=== PATIENT | male | born 1990 | race African-American/Black ===

== ENCOUNTER 2024-03-30 22:29 | Inpatient (IN) | payer OTHER, SELFPAY ==
--- NOTE | ~2024-03-30 | US_ITS ---
EXAMINATION: US TRIPLEX LOWER EXTREMITY, RIGHT CLINICAL INFORMATION: History of deep vein thrombosis. Noncompliant with AC COMPARISON: None available. TECHNIQUE: Color-flow triplex imaging with spectral analysis and compression Doppler were performed on the right lower extremity. FINDINGS: Respiratory variation, normal compression and augmented flow are noted throughout the right lower extremity. The visualized common femoral vein, superficial femoral vein, profunda femoral vein, popliteal vein and midcalf peroneal and posterior tibial venous segments show no evidence of deep venous thrombosis. There is no Holt's cyst. US/US venous duplex LE RT IMPRESSION: No evidence of deep venous thrombosis involving the right lower extremity. Electronically signed by: Cole Del Rio MD 03/31/2024 02:40 PM EDT
[2024-03-30 23:42] VITALS: BMI 21.6
[2024-03-30 23:44] VITALS: BP 111/76; PULSE 80; RESP 16; TEMP 36.9; O2SAT 99
--- NOTE | 2024-03-31 01:01 | PC.ADMIT ---
Pt is a 33 yo male admitted to unit via [facility] after referral from CARE Team via interhospital transfer from [facility]. Pt arrived on unit at 2245 on 03/30/2024. 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 Pt denies medical issues other than a hx of a blood clot a few years ago. Pt reports marijuana use weekly but denies alcohol or other substance use. However, the records reflect pt reported use of shrooms and jazmyn's . Pt reports smoking one cigarette daily. Precipitant to admission; pt came to hospital for treatment of right shoulder pain and while there stated to the ED doctor that he is not feeling like himself and feels like he is losing touch with reality . Stated he has not been med compliant. Reports feeling guarded and paranoid . Denies SI/HI. Pt endorses seeing shadowy figure and flashes of light and hearing voices but hard to make out what they are saying . Pt was reported to be conversing with himself in ambulance according to EMS. During admission evaluation, pt appeared to be thought blocking, pausing for periods of time before answering questions, poor attention span at those times. EMS reported that staff at [facility] stated that he was known to them and that he can be aggressive. Pt presents as disheveled and malodorous in hospital [facility]. Skin check unremarkable other than many tattoos and callused areas on plantar aspect of feet. Provider pipeline superintendent division [facility] notified of admission and orders obtained. Pt placed on 15 minute safety checks. Pt reports feeling safe on the hospital.
[2024-03-31 08:20] VITALS: BP 118/69; PULSE 88; RESP 16; TEMP 36.4; O2SAT 98
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
[2024-03-31 20:00] VITALS: BP 115/75; PULSE 61; RESP 16; TEMP 36.8; O2SAT 100
[2024-03-31] MEDS: OLANZapine 10 MG TABLET PO (22:07)
[2024-03-31] MEDS: Benztropine Mesylate 1 MG TABLET PO (22:07)
[2024-04-01 10:47] VITALS: BP 122/84; PULSE 88; RESP 18; TEMP 36.6; O2SAT 100
--- NOTE | 2024-04-01 16:23 | P.PNPSI_ITS ---
Subjective Subjective Date of Service: 04/01/24 Reason For Visit: bipolar disorder w/ psychotic features Interim History: calm, cooperative. glad to be back on meds. feeling improved but not well. homeless, used to be in a structured program, felt that was very helpful. not sure of meds. gets them from [facility]. per staff, refusing labs. appears internally preoccupied. odd affect. inappropriate affect. slept 7 hours. Mental Status Exam Mental Status Exam Narrative: adequately dressed and groomed. no PMA/PMR. cooperative. speech nml rate, amount. decr prosody. thoughts linear and logical. affect constricted, normo- intense, non-labile. mood not assessed. no SI/SIBI/HI/AVH expressed. Diagnostics Vital Signs (24Hr): Vital Signs - 24 hr 03/31/24 20:00 04/01/24 10:47 Temperature 98.2 F 97.9 F Pulse Rate 61 88 Respiratory Rate 16 18 Blood Pressure 115/75 122/84 Pulse Oximetry 100 100 Oxygen Delivery Method Room Air Room Air BMI result Body Mass Index 21.6 Imaging Radiology Impressions: ITS Impressions Venous Duplex 03/31/24 13:00 IMPRESSION: No evidence of deep venous thrombosis involving the right lower extremity. Electronically signed by: Cole Del Rio MD 03/31/2024 02:40 PM EDT Medications Medications Current Medications Acetaminophen (Acetaminophen 325 Mg Tablet) 650 mg PO Q6H PRN PRN Reason: Headache/Pain Mild Scale (1-3) Al Hydroxide/Mg Hydroxide (Magnesium Hydrox/Alum Hydrox 30 Ml Oral.Susp) 30 ml PO Q6H PRN PRN Reason: Heartburn/Nausea Benztropine Mesylate (Benztropine Mesylate 1 Mg Tablet) 1 mg PO BEDTIME [facility] Last Admin: 03/31/24 22:07 Dose: 1 mg Hydroxyzine HCl (Hydroxyzine Hcl 25 Mg Tablet) 25 mg PO Q6H PRN PRN Reason: Anxiety Magnesium Hydroxide (Milk Of Magnesia 30 Ml Oral.Susp) 30 ml PO DAILY PRN PRN Reason: Constipation Nicotine Polacrilex (Nicotine Polacrilex 2 Mg Gum) 2 mg BUCCAL Q2H PRN PRN Reason: Nicotine Cravings Olanzapine (Olanzapine 10 Mg Tablet) 10 mg PO BEDTIME [facility] Last Admin: 03/31/24 22:07 Dose: 10 mg Trazodone HCl (Trazodone Hcl 50 Mg Tablet) 50 mg PO BEDTIME MRX1 PRN PRN Reason: Insomnia Allergies Allergies Allergy/AdvReac Type Severity Reaction Status Date / Time Pork/Porcine Containing AdvReac Unknown Unknown Verified 03/30/24 23:41 Products fish derived [fish] AdvReac Difficulty Verified 03/30/24 23:41 Breathing Assessment & Plan Assessment & Plan (1) Bipolar disorder with psychotic features: Status: Acute Code(s): F31.9 - Bipolar disorder, unspecified Plan Patient is a 33-year-old male with history of bipolar disorder with psychotic features who self presented to [facility] ER d/t right shoulder pain and began to endorse having auditory hallucinations. Plan: CV 15 minute safety checks Continue home medications pt refused labs encourage groups obtain collateral referral to outpatient psychiatric providers discharge planning 04/01: [facility], last Rx'ed cogentin 1 daily, zyprexa 10 daily, trazodone 50 QHS. not filled after fall 2022. will continue with present regimen for now and review with pt tomorrow. Reason for continued inpatient stay Substantial Risk for: inability to function Time Spent With Patient Time: Total time managing care of this patient today _35___ minutes.
[2024-04-01 20:00] VITALS: RESP 16
[2024-04-01] MEDS: Benztropine Mesylate 1 MG TABLET PO (21:03)
[2024-04-01] MEDS: OLANZapine 10 MG TABLET PO (21:03)
[2024-04-02 07:15] VITALS: BP 108/71; PULSE 85; RESP 14; TEMP 36.9; O2SAT 98
--- NOTE | 2024-04-02 13:52 | HO.PSYCHPN ---
Subjective Subjective Date of Service: 04/02/24 Reason For Visit: bipolar disorder w/ psychotic features Interim History: reports slept well overnight. delayed answers, distracted. agreeable to continue current mgmt for now. outpt regimen discussed, MD's info from pharmacy discussed. per staff, variable affect. inappropriate smiling. showered. slept most of the day. +RIS. slept 7 hours. Mental Status Exam Mental Status Exam Narrative: adequately dressed and groomed. no PMA/PMR. cooperative. speech nml rate, amount. decr prosody. thoughts logical but with periods of delay and apparent non sequiturs in responses. affect constricted, normo-intense, non-labile. mood not assessed. no SI/SIBI/HI/AVH expressed. Diagnostics Vital Signs (24Hr): Vital Signs - 24 hr 04/01/24 20:00 04/02/24 07:15 Temperature 98.4 F Pulse Rate 85 Respiratory Rate 16 14 Blood Pressure 108/71 Pulse Oximetry 98 Oxygen Delivery Method Room Air BMI result Body Mass Index 21.6 Imaging Radiology Impressions: ITS Impressions Venous Duplex 03/31/24 13:00 IMPRESSION: No evidence of deep venous thrombosis involving the right lower extremity. Electronically signed by: Cole Del Rio MD 03/31/2024 02:40 PM EDT Medications Medications Current Medications Acetaminophen (Acetaminophen 325 Mg Tablet) 650 mg PO Q6H PRN PRN Reason: Headache/Pain Mild Scale (1-3) Al Hydroxide/Mg Hydroxide (Magnesium Hydrox/Alum Hydrox 30 Ml Oral.Susp) 30 ml PO Q6H PRN PRN Reason: Heartburn/Nausea Benztropine Mesylate (Benztropine Mesylate 1 Mg Tablet) 1 mg PO BEDTIME [facility] Last Admin: 04/01/24 21:03 Dose: 1 mg Hydroxyzine HCl (Hydroxyzine Hcl 25 Mg Tablet) 25 mg PO Q6H PRN PRN Reason: Anxiety Magnesium Hydroxide (Milk Of Magnesia 30 Ml Oral.Susp) 30 ml PO DAILY PRN PRN Reason: Constipation Nicotine Polacrilex (Nicotine Polacrilex 2 Mg Gum) 2 mg BUCCAL Q2H PRN PRN Reason: Nicotine Cravings Olanzapine (Olanzapine 10 Mg Tablet) 10 mg PO BEDTIME [facility] Last Admin: 04/01/24 21:03 Dose: 10 mg Trazodone HCl (Trazodone Hcl 50 Mg Tablet) 50 mg PO BEDTIME MRX1 PRN PRN Reason: Insomnia Allergies Allergies Allergy/AdvReac Type Severity Reaction Status Date / Time Pork/Porcine Containing AdvReac Unknown Unknown Verified 03/30/24 23:41 Products fish derived [fish] AdvReac Difficulty Verified 03/30/24 23:41 Breathing Assessment & Plan Assessment & Plan (1) Bipolar disorder with psychotic features: Status: Acute Code(s): F31.9 - Bipolar disorder, unspecified Plan Patient is a 33-year-old male with history of bipolar disorder with psychotic features who self presented to [facility] ER d/t right shoulder pain and began to endorse having auditory hallucinations. Plan: CV 15 minute safety checks Continue home medications pt refused labs encourage groups obtain collateral referral to outpatient psychiatric providers discharge planning [facility]/01: [facility], last Rx'ed cogentin 1 daily, zyprexa 10 daily, trazodone 50 QHS. not filled after fall 2022. will continue with present regimen for now and review with pt tomorrow. 04/02: discussed prior regimen with pt. pt with incr KEV and some non sequiturs. continue current mgmt for now. Reason for continued inpatient stay Substantial Risk for: inability to function Time Spent With Patient Time: Total time managing care of this patient today __25__ minutes.
[2024-04-02 20:00] VITALS: RESP 14
[2024-04-02] MEDS: OLANZapine 10 MG TABLET PO (20:16)
[2024-04-03] MEDS: Acetaminophen 325 MG TABLET 650 MG PO (08:34)
--- NOTE | 2024-04-03 13:16 | P.PNPSI_ITS ---
Subjective Subjective Date of Service: 04/03/24 Reason For Visit: bipolar disorder w/ psychotic features Interim History: seen with medical student, who conducted bulk of interview. pt much better able to express himself today. remains paranoid, notably of this commercial insurance underwriter due to this commercial insurance underwriter's silence during much of the interview, it seemed, but thoughts more organized and more expressed than yesterday. 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 it makes more sense. per staff, labile. agitated at times. c/o dep/anx. irritable. refused cogentin: i don't like the way you handled it. slept 8 hours. Mental Status Exam Mental Status Exam Narrative: adequately dressed and groomed. no PMA/PMR. cooperative. speech nml rate, incr amount. decr prosody. nml KEV. thoughts paranoid and illogical. affect constricted but more flexible than yesterday, normo-intense, non-labile. mood not assessed. no SI/SIBI/HI/AVH expressed. Diagnostics Vital Signs (24Hr): Vital Signs - 24 hr 04/02/24 20:00 Respiratory Rate 14 BMI result Body Mass Index 21.6 Imaging Radiology Impressions: ITS Impressions Venous Duplex 03/31/24 13:00 IMPRESSION: No evidence of deep venous thrombosis involving the right lower extremity. Electronically signed by: Cole Del Rio MD 03/31/2024 02:40 PM EDT RP Medications Medications Current Medications Acetaminophen (Acetaminophen 325 Mg Tablet) 650 mg PO Q6H PRN PRN Reason: Headache/Pain Mild Scale (1-3) Last Admin: 04/03/24 08:34 Dose: 650 mg Al Hydroxide/Mg Hydroxide (Magnesium Hydrox/Alum Hydrox 30 Ml Oral.Susp) 30 ml PO Q6H PRN PRN Reason: Heartburn/Nausea Benztropine Mesylate (Benztropine Mesylate 1 Mg Tablet) 1 mg PO BEDTIME [facility] Hydroxyzine HCl (Hydroxyzine Hcl 25 Mg Tablet) 25 mg PO Q6H PRN PRN Reason: Anxiety Ibuprofen (Ibuprofen 600 Mg Tablet) 600 mg PO Q6H PRN PRN Reason: Pain (Pain Scale 1-10) Magnesium Hydroxide (Milk Of Magnesia 30 Ml Oral.Susp) 30 ml PO DAILY PRN PRN Reason: Constipation Nicotine Polacrilex (Nicotine Polacrilex 2 Mg Gum) 2 mg BUCCAL Q2H PRN PRN Reason: Nicotine Cravings Olanzapine (Olanzapine 10 Mg Tablet) 10 mg PO BEDTIME [facility] Last Admin: 04/02/24 20:16 Dose: 10 mg Trazodone HCl (Trazodone Hcl 50 Mg Tablet) 50 mg PO BEDTIME MRX1 PRN PRN Reason: Insomnia Allergies Allergies Allergy/AdvReac Type Severity Reaction Status Date / Time Pork/Porcine Containing AdvReac Unknown Unknown Verified 03/30/24 23:41 Products fish derived [fish] AdvReac Difficulty Verified 03/30/24 23:41 Breathing Assessment & Plan Assessment & Plan (1) Bipolar disorder with psychotic features: Status: Acute Code(s): F31.9 - Bipolar disorder, unspecified Plan Patient is a 33-year-old male with history of bipolar disorder with psychotic features who self presented to [facility] ER d/t right shoulder pain and began to endorse having auditory hallucinations. Plan: CV 15 minute safety checks Continue home medications pt refused labs encourage groups obtain collateral referral to outpatient psychiatric providers discharge planning [facility]/01: [facility], last Rx'ed cogentin 1 daily, zyprexa 10 daily, trazodone 50 QHS. not filled after fall 2022. will continue with present regimen for now and review with pt tomorrow. 04/02: discussed prior regimen with pt. pt with incr KEV and some non sequiturs. continue current mgmt for now. 04/03: thoughts more organized, much more productive of speech. remains quite paranoid. continue current mgmt. Reason for continued inpatient stay Substantial Risk for: inability to function and rapid decompensation Time Spent With Patient Time: Total time managing care of this patient today _25___ minutes.
--- NOTE | 2024-04-03 14:28 | PC.NURSE ---
Pt came back in from [facility] and c/o chest pain and upset stomach . Staff alerted this appeals writer immediately. This appeals writer approached patient immediately after learning about his complaints. Pt declined to have his VS taken, as well as any type of assessment at all. Just give me my space, I don't want any of that . This appeals writer immediately told Dr Berry in person who noted the situation.
[2024-04-03 20:00] VITALS: BP 120/72; PULSE 88; RESP 16; TEMP 37.2; O2SAT 98
[2024-04-03] MEDS: Benztropine Mesylate 1 MG TABLET PO (20:38)
[2024-04-03] MEDS: OLANZapine 10 MG TABLET PO (20:38)
[2024-04-04 07:00] VITALS: BMI 22.9
[2024-04-04 07:35] VITALS: BP 120/84; PULSE 89; RESP 14; TEMP 36.9; O2SAT 99
--- NOTE | 2024-04-04 14:53 | HO.PSYCHPN ---
Subjective Subjective Date of Service: 04/04/24 Reason For Visit: bipolar disorder w/ psychotic features Interim History: calm, cooperative. more talkative than a couple days ago. remains vague and suspicious. declines change in medications. per staff, anxious, irritable. taking meds, +RIS. mostly in his room. Mental Status Exam Mental Status Exam Narrative: adequately dressed and groomed. no PMA/PMR. cooperative. speech nml rate, amount. decr prosody. nml KEV. thoughts paranoid and vague. affect constricted but more flexible than yesterday, normo-intense, non-labile. mood improved. no SI/SIBI/HI/AVH expressed. Diagnostics Vital Signs (24Hr): Vital Signs - 24 hr 04/03/24 20:00 04/04/24 07:35 Temperature 98.9 F 98.4 F Pulse Rate 88 89 Respiratory Rate 16 14 Blood Pressure 120/72 120/84 Pulse Oximetry 98 99 Oxygen Delivery Method Room Air Room Air BMI result Body Mass Index 22.9 Imaging Radiology Impressions: ITS Impressions Venous Duplex 03/31/24 13:00 IMPRESSION: No evidence of deep venous thrombosis involving the right lower extremity. Electronically signed by: Cole Del Rio MD 03/31/2024 02:40 PM EDT RP Medications Medications Current Medications Acetaminophen (Acetaminophen 325 Mg Tablet) 650 mg PO Q6H PRN PRN Reason: Headache/Pain Mild Scale (1-3) Last Admin: 04/03/24 08:34 Dose: 650 mg Al Hydroxide/Mg Hydroxide (Magnesium Hydrox/Alum Hydrox 30 Ml Oral.Susp) 30 ml PO Q6H PRN PRN Reason: Heartburn/Nausea Benztropine Mesylate (Benztropine Mesylate 1 Mg Tablet) 1 mg PO BEDTIME YOANDY Last Admin: 04/03/24 20:38 Dose: 1 mg Hydroxyzine HCl (Hydroxyzine Hcl 25 Mg Tablet) 25 mg PO Q6H PRN PRN Reason: Anxiety Ibuprofen (Ibuprofen 600 Mg Tablet) 600 mg PO Q6H PRN PRN Reason: Pain (Pain Scale 1-10) Magnesium Hydroxide (Milk Of Magnesia 30 Ml Oral.Susp) 30 ml PO DAILY PRN PRN Reason: Constipation Nicotine Polacrilex (Nicotine Polacrilex 2 Mg Gum) 2 mg BUCCAL Q2H PRN PRN Reason: Nicotine Cravings Olanzapine (Olanzapine 10 Mg Tablet) 10 mg PO BEDTIME YOANDY Last Admin: 04/03/24 20:38 Dose: 10 mg Trazodone HCl (Trazodone Hcl 50 Mg Tablet) 50 mg PO BEDTIME MRX1 PRN PRN Reason: Insomnia Allergies Allergies Allergy/AdvReac Type Severity Reaction Status Date / Time Pork/Porcine Containing AdvReac Unknown Unknown Verified 03/30/24 23:41 Products fish derived [fish] AdvReac Difficulty Verified 03/30/24 23:41 Breathing Assessment & Plan Assessment & Plan (1) Bipolar disorder with psychotic features: Status: Acute Code(s): F31.9 - Bipolar disorder, unspecified Plan Patient is a 33-year-old male with history of bipolar disorder with psychotic features who self presented to [facility] ER d/t right shoulder pain and began to endorse having auditory hallucinations. Plan: CV 15 minute safety checks Continue home medications pt refused labs encourage groups obtain collateral referral to outpatient psychiatric providers discharge planning 04/01: [facility] contacted, last Rx'ed cogentin 1 daily, zyprexa 10 daily, trazodone 50 QHS. not filled after fall 2022. will continue with present regimen for now and review with pt tomorrow. 04/02: discussed prior regimen with pt. pt with incr KEV and some non sequiturs. continue current mgmt for now. 04/03: thoughts more organized, much more productive of speech. remains quite paranoid. continue current mgmt. 04/04: no substantial change from yesterday. declines to increase zyprexa. continue current mgmt. Reason for continued inpatient stay Substantial Risk for: inability to function and rapid decompensation Time Spent With Patient Time: Total time managing care of this patient today __25__ minutes.
[2024-04-04 20:00] VITALS: RESP 16
[2024-04-04] MEDS: Benztropine Mesylate 1 MG TABLET PO (21:08)
[2024-04-04] MEDS: OLANZapine 10 MG TABLET PO (21:08)
--- NOTE | 2024-04-05 15:55 | HO.PSYCHPN ---
Subjective Subjective Date of Service: 04/05/24 Reason For Visit: bipolar disorder w/ psychotic features Interim History: pt reports he continues to feel better daily, would like to keep Tx the same. resting in bed. per staff, flat, irritable. guarded, superficially pleasant. hallucinations are a little. slept 8 hours. Mental Status Exam Mental Status Exam Narrative: adequately dressed, disheveled. no PMA/PMR. cooperative. speech nml rate, amount. decr prosody. nml KEV. thoughts vague. affect constricted, normo-intense, non-labile. mood improving daily. no SI/SIBI/HI/AVH expressed. Diagnostics Vital Signs (24Hr): Vital Signs - 24 hr 04/04/24 20:00 Respiratory Rate 16 BMI result Body Mass Index 22.9 Imaging Radiology Impressions: ITS Impressions Venous Duplex 03/31/24 13:00 IMPRESSION: No evidence of deep venous thrombosis involving the right lower extremity. Electronically signed by: Cole Del Rio MD 03/31/2024 02:40 PM EDT Medications Medications Current Medications Acetaminophen (Acetaminophen 325 Mg Tablet) 650 mg PO Q6H PRN PRN Reason: Headache/Pain Mild Scale (1-3) Last Admin: 04/03/24 08:34 Dose: 650 mg Al Hydroxide/Mg Hydroxide (Magnesium Hydrox/Alum Hydrox 30 Ml Oral.Susp) 30 ml PO Q6H PRN PRN Reason: Heartburn/Nausea Benztropine Mesylate (Benztropine Mesylate 1 Mg Tablet) 1 mg PO BEDTIME [facility] Last Admin: 04/04/24 21:08 Dose: 1 mg Hydroxyzine HCl (Hydroxyzine Hcl 25 Mg Tablet) 25 mg PO Q6H PRN PRN Reason: Anxiety Ibuprofen (Ibuprofen 600 Mg Tablet) 600 mg PO Q6H PRN PRN Reason: Pain (Pain Scale 1-10) Magnesium Hydroxide (Milk Of Magnesia 30 Ml Oral.Susp) 30 ml PO DAILY PRN PRN Reason: Constipation Nicotine Polacrilex (Nicotine Polacrilex 2 Mg Gum) 2 mg BUCCAL Q2H PRN PRN Reason: Nicotine Cravings Olanzapine (Olanzapine 10 Mg Tablet) 10 mg PO BEDTIME [facility] Last Admin: 04/04/24 21:08 Dose: 10 mg Trazodone HCl (Trazodone Hcl 50 Mg Tablet) 50 mg PO BEDTIME MRX1 PRN PRN Reason: Insomnia Allergies Allergies Allergy/AdvReac Type Severity Reaction Status Date / Time Pork/Porcine Containing AdvReac Unknown Unknown Verified 03/30/24 23:41 Products fish derived [fish] AdvReac Difficulty Verified 03/30/24 23:41 Breathing Assessment & Plan Assessment & Plan (1) Bipolar disorder with psychotic features: Status: Acute Code(s): F31.9 - Bipolar disorder, unspecified Plan Patient is a 33-year-old male with history of bipolar disorder with psychotic features who self presented to [facility] ER d/t right shoulder pain and began to endorse having auditory hallucinations. Plan: CV 15 minute safety checks Continue home medications pt refused labs encourage groups obtain collateral referral to outpatient psychiatric providers discharge planning 04/01: [facility], last Rx[facility]ed cogentin 1 daily, zyprexa 10 daily, trazodone 50 QHS. not filled after fall 2022. will continue with present regimen for now and review with pt tomorrow. 04/02: discussed prior regimen with pt. pt with incr KEV and some non sequiturs. continue current mgmt for now. 04/03: thoughts more organized, much more productive of speech. remains quite paranoid. continue current mgmt. 04/04: no substantial change from yesterday. declines to increase zyprexa. continue current mgmt. 04/05: reports feeling slightly better daily. would like to continue current mgmt. Reason for continued inpatient stay Substantial Risk for: inability to function and rapid decompensation Time Spent With Patient Time: Total time managing care of this patient today _25___ minutes.
[2024-04-05 20:00] VITALS: BP 124/69; PULSE 76; RESP 16; TEMP 36.4; O2SAT 98
[2024-04-05] MEDS: OLANZapine 10 MG TABLET PO (21:30)
[2024-04-05] MEDS: Benztropine Mesylate 1 MG TABLET PO (21:30)
--- NOTE | 2024-04-06 08:27 | P.PNPSI_ITS ---
Subjective Subjective Date of Service: 04/06/24 Reason For Visit: bipolar disorder w/ psychotic features Subjective Notes: Conditional Voluntary Healthcare Proxy: No Guardianship: No Medical Problems Affecting Mental Status: No Interim History: 33 yo reports wanting to be discharged- suggested he talk with team on monday- denying all symptoms to this provider- taking medications denying side effects Nursing report patient guarded, seen on periphery of [facility] not directly engaging in groups, walking lutz- tense and mumbles then gets irritable if asked what he said. Medication Compliance: Yes Side effects from medications: No Attending Groups: Intermittent Review of Systems Acute medical concerns: No Medical Review of Systems: unchanged Mental Status Exam Mental Status Exam Narrative: dressed in sudhakar Patient Appearance: Unkempt Patient Orientation: Person, Place and Situation Level of Consciousness: Awake and Alert Patient Behavior: Guarded, Avoidant and Good Eye Contact Mood Description: Suspicious and Apprehensive Affect Description: Blunted Ability to Follow Directions: Fair Speech Pattern: Mumbled and Poor Articulation Thought Process: Intact and Goal Oriented Thought Content: positive for [place] Depressive Symptoms: Increased Irritability Abnormal Motor Activity Signs and Symptoms: Restlessness Judgement: Fair Diagnostics Vital Signs (24Hr): Vital Signs - 24 hr 04/05/24 20:00 Temperature 97.5 F Pulse Rate 76 Respiratory Rate 16 Blood Pressure 124/69 Pulse Oximetry 98 Oxygen Delivery Method Room Air BMI result Body Mass Index 22.9 Imaging Radiology Impressions: ITS Impressions Venous Duplex 03/31/24 13:00 IMPRESSION: No evidence of deep venous thrombosis involving the right lower extremity. Electronically signed by: Cole Del Rio MD 03/31/2024 02:40 PM EDT Medications Medications Current Medications Acetaminophen (Acetaminophen 325 Mg Tablet) 650 mg PO Q6H PRN PRN Reason: Headache/Pain Mild Scale (1-3) Last Admin: 04/03/24 08:34 Dose: 650 mg Al Hydroxide/Mg Hydroxide (Magnesium Hydrox/Alum Hydrox 30 Ml Oral.Susp) 30 ml PO Q6H PRN PRN Reason: Heartburn/Nausea Benztropine Mesylate (Benztropine Mesylate 1 Mg Tablet) 1 mg PO BEDTIME YOANDY Last Admin: 04/05/24 21:30 Dose: 1 mg Hydroxyzine HCl (Hydroxyzine Hcl 25 Mg Tablet) 25 mg PO Q6H PRN PRN Reason: Anxiety Ibuprofen (Ibuprofen 600 Mg Tablet) 600 mg PO Q6H PRN PRN Reason: Pain (Pain Scale 1-10) Magnesium Hydroxide (Milk Of Magnesia 30 Ml Oral.Susp) 30 ml PO DAILY PRN PRN Reason: Constipation Nicotine Polacrilex (Nicotine Polacrilex 2 Mg Gum) 2 mg BUCCAL Q2H PRN PRN Reason: Nicotine Cravings Olanzapine (Olanzapine 10 Mg Tablet) 10 mg PO BEDTIME YOANDY Last Admin: 04/05/24 21:30 Dose: 10 mg Trazodone HCl (Trazodone Hcl 50 Mg Tablet) 50 mg PO BEDTIME MRX1 PRN PRN Reason: Insomnia Allergies Allergies Allergy/AdvReac Type Severity Reaction Status Date / Time Pork/Porcine Containing AdvReac Unknown Unknown Verified 03/30/24 23:41 Products fish derived [fish] AdvReac Difficulty Verified 03/30/24 23:41 Breathing Assessment & Plan Assessment & Plan (1) Bipolar disorder with psychotic features: Status: Acute Code(s): F31.9 - Bipolar disorder, unspecified Plan Patient is a 33-year-old male with history of bipolar disorder with psychotic features who self presented to [facility] ER d/t right shoulder pain and began to endorse having auditory hallucinations. Plan: CV 15 minute safety checks Continue home medications pt refused labs encourage groups obtain collateral referral to outpatient psychiatric providers discharge planning 04/01: [facility], last Rx[facility]ed cogentin 1 daily, zyprexa 10 daily, trazodone 50 QHS. not filled after fall 2022. will continue with present regimen for now and review with pt tomorrow. 04/02: discussed prior regimen with pt. pt with incr KEV and some non sequiturs. continue current mgmt for now. 04/03: thoughts more organized, much more productive of speech. remains quite paranoid. continue current mgmt. 04/04: no substantial change from yesterday. declines to increase zyprexa. continue current mgmt. 04/05: reports feeling slightly better daily. would like to continue current mgmt. 04/06 asking about dc plan , appears guarded and reactive but more visible- CTP Patient educated on: other (dc planning) Informed Consent: further education needed Reason for continued inpatient stay Substantial Risk for: rapid decompensation Time Spent With Patient Time: Total time managing care of this patient today ____ minutes.
[2024-04-06 20:00] VITALS: RESP 16
[2024-04-07 07:49] VITALS: RESP 16
[2024-04-07] MEDS: OLANZapine 5 MG TABLET PO (09:15)
--- NOTE | 2024-04-07 11:12 | HO.PSYCHPN ---
Subjective Subjective Date of Service: 04/07/24 Reason For Visit: bipolar disorder w/ psychotic features Subjective Notes: Conditional Voluntary Healthcare Proxy: No Guardianship: No Medical Problems Affecting Mental Status: No Interim History: 33 yo who refused olanzapine 10mg last night due to what was going on with him- but can't really say what that was, seems to imply it was things on the unit but not clear that was it- Slept without olanzapine but woke up this am and was paranoid- asked for olanzapine 5mg with good effect- less defensive with provider today but nursing says he is defensive intermittently with different people, just as he was with me yesterday- Wants to stay on this dose for a bit to see what it can do for him- hoping for dc- told him he needs a dc plan with providers Medication Compliance: Intermittent Side effects from medications: No Attending Groups: Intermittent Review of Systems Acute medical concerns: No Medical Review of Systems: unchanged Mental Status Exam Mental Status Exam Patient Appearance: Appropriate Patient Orientation: Person, Place, Time and Situation Level of Consciousness: Awake and Alert Patient Behavior: Guarded, Passive and Good Eye Contact Mood Description: Anxious Affect Description: Blunted Patient Cognition Impaired: No Ability to Follow Directions: Fair Speech Pattern: Mumbled Hallucinations: None Thought Process: Distracted Thought Content: positive for Goal Oriented and positive for Evasive (more vague than evasive) Depressive Symptoms: Muscle Tension and Increased Irritability (intermittent) Abnormal Motor Activity Signs and Symptoms: Restlessness Judgement: Fair Diagnostics Vital Signs (24Hr): Vital Signs - 24 hr 04/06/24 20:00 04/07/24 07:49 Respiratory Rate 16 16 BMI result Body Mass Index 22.9 Imaging Radiology Impressions: ITS Impressions Venous Duplex 03/31/24 13:00 IMPRESSION: No evidence of deep venous thrombosis involving the right lower extremity. Electronically signed by: Cole Del Rio MD 03/31/2024 02:40 PM EDT Medications Medications Current Medications Acetaminophen (Acetaminophen 325 Mg Tablet) 650 mg PO Q6H PRN PRN Reason: Headache/Pain Mild Scale (1-3) Last Admin: 04/03/24 08:34 Dose: 650 mg Al Hydroxide/Mg Hydroxide (Magnesium Hydrox/Alum Hydrox 30 Ml Oral.Susp) 30 ml PO Q6H PRN PRN Reason: Heartburn/Nausea Benztropine Mesylate (Benztropine Mesylate 1 Mg Tablet) 1 mg PO BEDTIME YOANDY Last Admin: 04/06/24 21:29 Dose: Not Given Hydroxyzine HCl (Hydroxyzine Hcl 25 Mg Tablet) 25 mg PO Q6H PRN PRN Reason: Anxiety Ibuprofen (Ibuprofen 600 Mg Tablet) 600 mg PO Q6H PRN PRN Reason: Pain (Pain Scale 1-10) Magnesium Hydroxide (Milk Of Magnesia 30 Ml Oral.Susp) 30 ml PO DAILY PRN PRN Reason: Constipation Nicotine Polacrilex (Nicotine Polacrilex 2 Mg Gum) 2 mg BUCCAL Q2H PRN PRN Reason: Nicotine Cravings Olanzapine (Olanzapine 10 Mg Tablet) 10 mg PO BEDTIME YOANDY Last Admin: 04/06/24 21:29 Dose: Not Given Olanzapine (Olanzapine 5 Mg Tablet) 5 mg PO Q4H PRN PRN Reason: Psychosis Last Admin: 04/07/24 09:15 Dose: 5 mg Trazodone HCl (Trazodone Hcl 50 Mg Tablet) 50 mg PO BEDTIME MRX1 PRN PRN Reason: Insomnia Allergies Allergies Allergy/AdvReac Type Severity Reaction Status Date / Time Pork/Porcine Containing AdvReac Unknown Unknown Verified 03/30/24 23:41 Products fish derived [fish] AdvReac Difficulty Verified 03/30/24 23:41 Breathing Assessment & Plan Assessment & Plan (1) Bipolar disorder with psychotic features: Status: Acute Code(s): F31.9 - Bipolar disorder, unspecified Plan Patient is a 33-year-old male with history of bipolar disorder with psychotic features who self presented to [facility] ER d/t right shoulder pain and began to endorse having auditory hallucinations. Plan: CV 15 minute safety checks Continue home medications pt refused labs encourage groups obtain collateral referral to outpatient psychiatric providers discharge planning 04/01: [facility], last Rx'ed cogentin 1 daily, zyprexa 10 daily, trazodone 50 QHS. not filled after fall 2022. will continue with present regimen for now and review with pt tomorrow. 04/02: discussed prior regimen with pt. pt with incr KEV and some non sequiturs. continue current mgmt for now. 04/03: thoughts more organized, much more productive of speech. remains quite paranoid. continue current mgmt. 04/04: no substantial change from yesterday. declines to increase zyprexa. continue current mgmt. 04/05: reports feeling slightly better daily. would like to continue current mgmt. 04/06 asking about dc plan , appears guarded and reactive but more visible- CTP 04/07 CTP intermittent irritability Patient educated on: medication risk/benefits Informed Consent: further education needed Reason for continued inpatient stay Substantial Risk for: rapid decompensation Time Spent With Patient Time: Total time managing care of this patient today ____ minutes.
[2024-04-07 20:00] VITALS: RESP 16
--- NOTE | 2024-04-08 15:16 | P.PNPSI_ITS ---
Subjective Subjective Date of Service: 04/08/24 Reason For Visit: bipolar disorder w/ psychotic features Interim History: calm, cooperative. appears relaxed, not guarded or paranoid. states he does want to take medications, intends to take them tonight. informed if not interested in Tx will DC in next couple of days. would like to go to respite but interested in DCing soon. per staff, anxious, labile. withdrawn. paranoid, guarded, irritable, pleasant? +RIS. refused HS meds sat and sun. Mental Status Exam Mental Status Exam Narrative: adequately dressed, disheveled. no PMA/PMR. cooperative. speech nml rate, amount. decr prosody. nml KEV. thoughts less vague. affect constricted, normo-intense, non-labile. mood not assessed. no SI/SIBI/HI/AVH expressed. Diagnostics Vital Signs (24Hr): Vital Signs - 24 hr 04/07/24 20:00 Respiratory Rate 16 BMI result Body Mass Index 22.9 Imaging Radiology Impressions: ITS Impressions Venous Duplex 03/31/24 13:00 IMPRESSION: No evidence of deep venous thrombosis involving the right lower extremity. Electronically signed by: Cole Del Rio MD 03/31/2024 02:40 PM EDT RP Medications Medications Current Medications Acetaminophen (Acetaminophen 325 Mg Tablet) 650 mg PO Q6H PRN PRN Reason: Headache/Pain Mild Scale (1-3) Last Admin: 04/03/24 08:34 Dose: 650 mg Al Hydroxide/Mg Hydroxide (Magnesium Hydrox/Alum Hydrox 30 Ml Oral.Susp) 30 ml PO Q6H PRN PRN Reason: Heartburn/Nausea Benztropine Mesylate (Benztropine Mesylate 1 Mg Tablet) 1 mg PO BEDTIME YOANDY Last Admin: 04/07/24 21:30 Dose: Not Given Hydroxyzine HCl (Hydroxyzine Hcl 25 Mg Tablet) 25 mg PO Q6H PRN PRN Reason: Anxiety Ibuprofen (Ibuprofen 600 Mg Tablet) 600 mg PO Q6H PRN PRN Reason: Pain (Pain Scale 1-10) Magnesium Hydroxide (Milk Of Magnesia 30 Ml Oral.Susp) 30 ml PO DAILY PRN PRN Reason: Constipation Nicotine Polacrilex (Nicotine Polacrilex 2 Mg Gum) 2 mg BUCCAL Q2H PRN PRN Reason: Nicotine Cravings Olanzapine (Olanzapine 10 Mg Tablet) 10 mg PO BEDTIME YOANDY Last Admin: 04/07/24 21:30 Dose: Not Given Olanzapine (Olanzapine 5 Mg Tablet) 5 mg PO Q4H PRN PRN Reason: Psychosis Last Admin: 04/07/24 09:15 Dose: 5 mg Trazodone HCl (Trazodone Hcl 50 Mg Tablet) 50 mg PO BEDTIME MRX1 PRN PRN Reason: Insomnia Allergies Allergies Allergy/AdvReac Type Severity Reaction Status Date / Time Pork/Porcine Containing AdvReac Unknown Unknown Verified 03/30/24 23:41 Products fish derived [fish] AdvReac Difficulty Verified 03/30/24 23:41 Breathing Assessment & Plan Assessment & Plan (1) Bipolar disorder with psychotic features: Status: Acute Code(s): F31.9 - Bipolar disorder, unspecified Plan Patient is a 33-year-old male with history of bipolar disorder with psychotic features who self presented to [facility] ER d/t right shoulder pain and began to endorse having auditory hallucinations. Plan: CV 15 minute safety checks Continue home medications pt refused labs encourage groups obtain collateral referral to outpatient psychiatric providers discharge planning 04/01: [facility], last Rx'ed cogentin 1 daily, zyprexa 10 daily, trazodone 50 QHS. not filled after fall 2022. will continue with present regimen for now and review with pt tomorrow. 04/02: discussed prior regimen with pt. pt with incr KEV and some non sequiturs. continue current mgmt for now. 2: thoughts more organized, much more productive of speech. remains quite paranoid. continue current mgmt. 04/04: no substantial change from yesterday. declines to increase zyprexa. continue current mgmt. 04/05: reports feeling slightly better daily. would like to continue current mgmt. 04/06 asking about dc plan , appears guarded and reactive but more visible- CTP 04/07 CTP intermittent irritability 04/08: refused meds past 2 nights. planning to discharge soon. D/C w[facility] or [place]. Reason for continued inpatient stay Substantial Risk for: inability to function Time Spent With Patient Time: Total time managing care of this patient today _25___ minutes.
[2024-04-08 16:06] VITALS: BP 126/79; PULSE 97; RESP 16; O2SAT 99
[2024-04-08] MEDS: OLANZapine 10 MG TABLET PO (19:46)
[2024-04-08] MEDS: Benztropine Mesylate 1 MG TABLET PO (19:46)
--- NOTE | 2024-04-08 19:48 | PC.NURSE ---
HS medications requested by patient at this time. medications administered.
[2024-04-08 20:00] VITALS: RESP 16
--- NOTE | 2024-04-09 16:09 | HO.PSYCHPN ---
Subjective Subjective Date of Service: 04/09/24 Reason For Visit: bipolar disorder w/ psychotic features Interim History: in bed in afternoon, rousable. no complaints or requests. planning to DC . per staff, not attending groups. took meds last NOC. slept 7 hours. D/C . Mental Status Exam Mental Status Exam Narrative: adequately dressed, disheveled. no PMA/PMR. cooperative. speech nml rate, amount. decr prosody. nml KEV. thoughts less vague. affect constricted, normo-intense, non-labile. mood not assessed. no SI/SIBI/HI/AVH expressed. Diagnostics Vital Signs (24Hr): Vital Signs - 24 hr 04/08/24 20:00 Respiratory Rate 16 BMI result Body Mass Index 22.9 Imaging Radiology Impressions: ITS Impressions Venous Duplex 03/31/24 13:00 IMPRESSION: No evidence of deep venous thrombosis involving the right lower extremity. Electronically signed by: Cole Del Rio MD 03/31/2024 02:40 PM EDT Medications Medications Current Medications Acetaminophen (Acetaminophen 325 Mg Tablet) 650 mg PO Q6H PRN PRN Reason: Headache/Pain Mild Scale (1-3) Last Admin: 04/03/24 08:34 Dose: 650 mg Al Hydroxide/Mg Hydroxide (Magnesium Hydrox/Alum Hydrox 30 Ml Oral.Susp) 30 ml PO Q6H PRN PRN Reason: Heartburn/Nausea Benztropine Mesylate (Benztropine Mesylate 1 Mg Tablet) 1 mg PO BEDTIME [facility] Last Admin: 04/08/24 19:46 Dose: 1 mg Hydroxyzine HCl (Hydroxyzine Hcl 25 Mg Tablet) 25 mg PO Q6H PRN PRN Reason: Anxiety Ibuprofen (Ibuprofen 600 Mg Tablet) 600 mg PO Q6H PRN PRN Reason: Pain (Pain Scale 1-10) Magnesium Hydroxide (Milk Of Magnesia 30 Ml Oral.Susp) 30 ml PO DAILY PRN PRN Reason: Constipation Nicotine Polacrilex (Nicotine Polacrilex 2 Mg Gum) 2 mg BUCCAL Q2H PRN PRN Reason: Nicotine Cravings Olanzapine (Olanzapine 10 Mg Tablet) 10 mg PO BEDTIME [facility] Last Admin: 04/08/24 19:46 Dose: 10 mg Olanzapine (Olanzapine 5 Mg Tablet) 5 mg PO Q4H PRN PRN Reason: Psychosis Last Admin: 04/07/24 09:15 Dose: 5 mg Trazodone HCl (Trazodone Hcl 50 Mg Tablet) 50 mg PO BEDTIME MRX1 PRN PRN Reason: Insomnia Allergies Allergies Allergy/AdvReac Type Severity Reaction Status Date / Time Pork/Porcine Containing AdvReac Unknown Unknown Verified 03/30/24 23:41 Products fish derived [fish] AdvReac Difficulty Verified 03/30/24 23:41 Breathing Assessment & Plan Assessment & Plan (1) Bipolar disorder with psychotic features: Status: Acute Code(s): F31.9 - Bipolar disorder, unspecified Plan Patient is a 33-year-old male with history of bipolar disorder with psychotic features who self presented to [facility] ER d/t right shoulder pain and began to endorse having auditory hallucinations. Plan: CV 15 minute safety checks Continue home medications pt refused labs encourage groups obtain collateral referral to outpatient psychiatric providers discharge planning 04/01: [facility] contacted, last Rx'ed cogentin 1 daily, zyprexa 10 daily, trazodone 50 QHS. not filled after fall 2022. will continue with present regimen for now and review with pt tomorrow. 04/02: discussed prior regimen with pt. pt with incr KEV and some non sequiturs. continue current mgmt for now. 102: thoughts more organized, much more productive of speech. remains quite paranoid. continue current mgmt. 04/04: no substantial change from yesterday. declines to increase zyprexa. continue current mgmt. 04/05: reports feeling slightly better daily. would like to continue current mgmt. 04/06 asking about dc plan , appears guarded and reactive but more visible- CTP 04/07 CTP intermittent irritability 04/08: refused meds past 2 nights. planning to discharge soon. D/C or mon. 04/09: stable presentation. took meds last night. discharge . Reason for continued inpatient stay Substantial Risk for: inability to function and rapid decompensation Time Spent With Patient Time: Total time managing care of this patient today ____ minutes.
[2024-04-09 20:00] VITALS: RESP 17
[2024-04-10 07:20] VITALS: BP 111/76; PULSE 95; RESP 16; O2SAT 99
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
[2024-04-10 20:00] VITALS: RESP 16
[2024-04-10] MEDS: Benztropine Mesylate 1 MG TABLET PO (20:40)
[2024-04-10] MEDS: OLANZapine 10 MG TABLET PO (20:41)
[2024-04-10] MEDS: traZODone HCL 50 MG TABLET PO (20:41)
--- NOTE | 2024-04-11 11:27 | PC.NURSE ---
Patient aware of discharge. Reports he is concerned about it being cold. Denies depression or sadness, denies SI/HI. Denies A/V hallucinations however continues guarded, and suspicious. All discharge paperwork reviewed with patient. Reports understanding. Follow up appointment reviewed with patient, reports understanding. Medications reviewed with patient reports understanding. All belongings taken with patient. Crisis numbers provided.
== END 2024-04-11 11:19 | disposition home or self-care (01) | DRG 753 ==
PROVIDERS: Admitting Provider Psychiatry & Neurology Psychiatry; Visit Provider Psychiatry & Neurology Psychiatry
DX: F31.9 Bipolar disorder, unspecified (principal); Z91.148 Patient's other noncompliance with medication regimen for other reason; F17.210 Nicotine dependence, cigarettes, uncomplicated; G89.29 Other chronic pain; M25.511 Pain in right shoulder; Z59.02 Unsheltered homelessness; Z71.6 Tobacco abuse counseling; Z86.718 Personal history of other venous thrombosis and embolism; Z79.899 Other long term (current) drug therapy
CPT/HCPCS: 93971

== ENCOUNTER → 2024-03-30 22:29 | Outpatient (BNV) | payer OTHER, SELFPAY | PROVIDERS: Admitting Provider Psychiatry & Neurology Psychiatry; Visit Provider Physician Assistant | DX: Z00.00 Encounter for general adult medical examination without abnormal findings (principal) | CPT/HCPCS: 99429 ==

== ENCOUNTER → 2024-03-30 22:29 | Outpatient (BNV) | payer OTHER, SELFPAY | PROVIDERS: Admitting Provider Psychiatry & Neurology Psychiatry; Visit Provider Registered Nurse | DX: F31.5 Bipolar disorder, current episode depressed, severe, with psychotic features (principal) | CPT/HCPCS: 90792; 99231; 99232; 99239 ==